=== PATIENT | female | born 1965 | race Two or more races ===

== ENCOUNTER 2018-02-14 10:02 | Emergency (ER) | payer MEDICAID, OTHER ==
[~2018-02-14] VITALS: Ht 162.6 cm; Wt 79.4 kg
[2018-02-14 10:13] VITALS: BP 151/95
[2018-02-14] MEDS ORDERED: KETOROLAC TROMETH 60MG/2ML VIAL IM ONE (11:15)
== END 2018-02-14 12:32 | disposition home or self-care (01) ==
LOC: ER 10:06
DX: M79.605 Pain in left leg (principal); M79.604 Pain in right leg; E78.5 Hyperlipidemia, unspecified; I10 Essential (primary) hypertension; Z88.0 Allergy status to penicillin
CPT/HCPCS: 93970

== ENCOUNTER 2018-11-21 16:52 | Emergency (ER) | payer MEDICAID ==
[~2018-11-21] VITALS: Ht 162.6 cm; Wt 82.6 kg
[2018-11-21 17:58] VITALS: BP 162/101
== END 2018-11-21 19:10 | disposition home or self-care (01) ==
LOC: ER 16:59
DX: R06.02 Shortness of breath (principal); I10 Essential (primary) hypertension; E78.00 Pure hypercholesterolemia, unspecified
CPT/HCPCS: 71045; 93005; 94761